=== PATIENT | male | born 1945 | race Two or more races ===

== ENCOUNTER 2017-12-08 18:22 | Outpatient (CLI) | END 2017-12-08 18:39 | disposition short-term general hospital (02) | LOC: AMBL 18:22 | PROVIDERS: ATTEND Family Medicine | DX: S69.91XA Unspecified injury of right wrist, hand and finger(s), initial encounter (principal); V53.5XXA Driver of pick-up truck or van injured in collision with car, pick-up truck or van in traffic accident, initial encounter ==